=== PATIENT | female | born 1970 | race Two or more races ===

== ENCOUNTER 2016-10-05 02:41 | Emergency (ER) | payer OTHER ==
[2016-10-05] MEDS ORDERED: ONDANSETRON 4 MG/2ML 2 ML VIAL ONE (02:54)
[2016-10-05] MEDS ORDERED: LACTATED RINGERS 1,000 ML ONE ×2 (02:54→04:05)
[2016-10-05 03:06] LABS: ABSOLUTE NEUTROPHIL COUNT 20.5 K/mm3 (1.8-7.7); BASO % 0.2 % (0.2-1.0); HEMATOCRIT 45.8 % (37.0-47.0); IMM NEUT # 0.1 K/mm3 (0-0.2); IMM NEUT% 0.6 % (0-1); LYMPH # 0.6 (1.0-4.8); LYMPH % 2.6 % (15-45); MEAN CELL VOLUME 85.9 fl (81.0-99.0); MEAN CORPUSCULAR HGB CONC 34.9 g/dl (33.0-37.0); MEAN PLATELET VOLUME 10.5 fl (7.4-10.4); MONO # 0.4 (0.0-0.8); MONO % 1.7 % (4-12); NEUT % 94.9 % (43-75); PLATELET COUNT 397 K/mm3 (130-400); RED CELL DISTRIBUTION WIDTH 12.4 % (11.5-14.5)
[2016-10-05 03:27] LABS: SPECIFIC GRAVITY 1.015 (1.001-1.030); URINE BILIRUBIN NEGATIVE (NEGATIVE); URINE BLOOD 3+ (NEGATIVE); URINE GLUCOSE (UA) 3+ (NEGATIVE); URINE LEUKOCYTE ESTERASE NEGATIVE (NEGATIVE); URINE NITRITE NEGATIVE (NEGATIVE); URINE PROTEIN 3+ (NEGATIVE); URINE UROBILINOGEN NORMAL (0-1 mg/dl)
[2016-10-05 03:30] LABS: URINE APPEARANCE HAZY; URINE COLOR YELLOW
[2016-10-05 03:33] LABS: URINE BACTERIA RARE; URINE EPITHELIAL CELLS 0-1 /hpf; URINE RBC 30-40 /hpf; URINE WBC 0-1 /hpf
[2016-10-05 03:35] LABS: ALB/GLOB RATIO 1.3 (>1.0); ALBUMIN 4.9 gm/dL (3.5-5.7); CALCIUM 11.2 mg/dL (8.6-10.3)
[2016-10-05] MEDS ORDERED: MORPHINE SULFATE 4 MG/ML SYRINGE ONE (04:00)
[2016-10-05] MEDS ORDERED: INSULIN REGULAR HUMAN (DOSE) 100 UNITS/1 ML ONE (04:45)
[2016-10-05 04:52] LABS: BAND 3 % (0-10); BASOPHIL 0 % (0-1); EOSINOPHIL 0 % (1-3); LYMPHOCYTE 4 % (15-45); MONOCYTE 2 % (4-12); NEUTROPHILS 91 % (43-75); PLATELET ESTIMATE NORMAL (NORMAL); TOTAL CELLS COUNTED 100
== END 2016-10-05 06:10 | disposition home or self-care (01) ==
LOC: ED 02:41
DX: E86.0 Dehydration (principal); R11.2 Nausea with vomiting, unspecified; E11.65 Type 2 diabetes mellitus with hyperglycemia; Z79.84 Long term (current) use of oral hypoglycemic drugs
CPT/HCPCS: 84703; 85025; 80053; 81001; 96375; 99283 ×2; 96372; 96374; J2270; J2405; J7120 ×2; J1815